=== PATIENT | male | born 1975 | race Caucasian/White ===

== ENCOUNTER 2016-10-19 14:29 | Emergency (ER) | payer OTHER ==
[~2016-10-19] VITALS: Ht 180.3 cm; Wt 150.0 kg
[~2016-10-19 14:29] MED LIST: CLIN150 PO; CORTIS10A AS; GLUCTAB47 PO; TAB-TAB PO
[2016-10-19 14:33] VITALS: BP 138/90; PULSE 84; RESP 16; TEMP 97.4; O2SAT 96
--- NOTE | 2016-10-19 14:43 | PD ---
HPI Chief Complaint: Laceration/Skin Injury Time Seen by Provider: 14:42 Travel History International Travel<30 days: No Contact w/Intl Traveler<30days: No Traveled to known affect area: No History of Present Illness HPI 41 year old male presents to the ED for evaluation of lip laceration. Sustained just before arrival. The patient states that he was attempting to release a lever on a fire extinguisher and was struck in the mouth by a second lever. On presentation he complains of 4/10 pain in the top teeth. He denies LOC, headache , dizziness,loose teeth, malocclusion. He is unsure of his last tetanus immunization. [facility] Past Medical History Medical History: Denies Significant Hx Social History Tobacco Use: No Allergies-Medications (Allergen,Severity, Reaction): Coded Allergies: No Known Allergies (Verified , 10/19/16) Reported Meds & Prescriptions Reported Meds & Active Scripts Active Magic Mouthwash Adult Liq (Multi-Ingredient Mouthwash/Gargle) 120 Ml Susp 10 Ml SWISH-SWAL ACHS Each 5mL contains: Nystatin 200,000units, Diphenhydramine 4.25mg, Viscous Lidocaine 10mg, Astudillo syrup 0.8 mL Reported Prednisone 5 Mg Tab 15 Mg PO DAILY Baclofen 10 Mg Tab 10 Mg PO Q8HR PRN Enalapril (Enalapril Maleate) 2.5 Mg Tab 2.5 Mg PO DAILY Metformin (Metformin HCl) 500 Mg Tab 500 Mg PO DAILY With a meal Trexall (Methotrexate) 15 Mg Tab 15 Mg PO Q7D Review of Systems Except as stated in HPI: all other systems reviewed are Neg Physical Exam Narrative GENERAL: Well-nourished, well-developed white male in no acute distress. SKIN: Focused skin assessment warm/dry. There is a subcentimeter, stellate, superficial laceration of the lower lip. There is a similar laceration of the buccal surface of the lower lip. There is no communication between the two lacerations. No active bleeding. No edema of the mucosa. HEAD: Normocephalic. EYES: No scleral icterus. No injection or drainage. DENTAL: No loose or chipped teeth. No malocclusion. No movement of the alveolar ridge. No edema or bleeding of the gingiva. NECK: Supple, trachea midline. No JVD or lymphadenopathy. CARDIOVASCULAR: Regular rate and rhythm without murmurs, gallops, or rubs. RESPIRATORY: Breath sounds clear and equal bilaterally. No accessory muscle use. GASTROINTESTINAL: Abdomen soft, non-tender, nondistended. Active bowel sounds MUSCULOSKELETAL: No cyanosis, or edema. Patient is ambulatory and moves the extremities spontaneously. BACK: Nontender without obvious deformity. No CVA tenderness. Data Data Last Documented VS Vital Signs Date Time Temp Pulse Resp B/P Pulse Ox O2 Delivery O2 Flow Rate FiO2 10/19/16 14:33 97.4 84 16 138/90 96 Orders Tetanus/Diphtheria Tox Adult (Tetanus/Di (10/19/16 15:15) MDM Medical Decision Making Medical Screen Exam Complete: Yes Emergency Medical Condition: Yes Differential Diagnosis laceration versus dentalgia versus maxillary fracture versus avulsion versus other Narrative Course 41 year old male presents to the ED for evaluation of lip laceration. Sustained just before arrival. The patient states that he was attempting to release a lever on a fire extinguisher and was struck in the mouth by a second lever. On presentation he complains of pain in the top teeth. He denies LOC, headache, dizziness,loose teeth, malocclusion. He is unsure of his last tetanus immunization. Vitals reviewed. Physical exam reveals a subcentimeter, stellate, superficial laceration of the lower lip. There is a similar laceration of the buccal surface of the lower lip. There is no communication between the two lacerations. No active bleeding. No edema of the mucosa. Tooth #8 is tender to palpation. No loose or chipped teeth. No malocclusion. No movement of the alveolar ridge. No edema or bleeding of the gingiva. Tetanus immunization was updated. I have very low suspicion for maxillary fracture. The lacerations are superficial and do not require sutures. Patient was provided a prescription for magic mouthwash, instructed to follow up with the dentist. He indicated understanding of the instructions and is agreeable to the care plan. He is stable and discharged home. Diagnosis Primary Impression: Lip laceration Qualified Code: S01.511A - Lip laceration, initial encounter Additional Impressions: Dentalgia Immunization, tetanus toxoid Referrals: Dentist Patient Instructions: Acute Dental Trauma (ED), General Instructions Additional Instructions: Rest, hydrate. Keep the lip laceration clean, dry and covered. Swish and spit magic mouthwash 3-4 times per day as needed for dental pain. OTC pain medications as described on the label, as needed. Follow up with the dentist as discussed. Return to the ED for any urgent or emergent medical condition. Med/Other Pt SpecificInfo: Prescription(s) given Scripts Kjhgjqsu-Xqqxqwfkhhmagbb-Kmccqwczm Liq (Magic Mouthwash Adult Liq)120 Ml Susp10 Ml SWISH-SWAL ACHS #120 ML Ref 0 Each 5mL contains: Nystatin 200,000units, Diphenhydramine 4.25mg, Viscous Lidocaine 10mg, Astudillo syrup 0.8 mL Prov:Doug Mac MD 10/19/16 Disposition: 01 DISCHARGE HOME Condition: Stable Nicole Kaufman October 19, 2016 14:43
[2016-10-19] MEDS ORDERED: PRED5TAB PO (14:45)
[2016-10-19] MEDS ORDERED: BACL10TA PO (14:45)
[2016-10-19] MEDS ORDERED: TREX15TA PO (14:45)
[2016-10-19] MEDS ORDERED: METF500T PO (14:45)
[2016-10-19] MEDS ORDERED: ENAL2.5T PO (14:45)
[2016-10-19] MEDS ORDERED: MAGICADU2 SWISH-SWAL (15:12)
[2016-10-19] MEDS ORDERED: TETANUS/DIPHTHERIA TOXOID ADULT 0.5 ML VIAL IM ONE (15:15)
== END 2016-10-19 15:19 | disposition home or self-care (01) ==
LOC: PHEFT 14:29
DX: S01.511A Laceration without foreign body of lip, initial encounter (principal); K08.89 Other specified disorders of teeth and supporting structures; Z23 Encounter for immunization; W22.8XXA Striking against or struck by other objects, initial encounter
CPT/HCPCS: 90471; 90714